=== PATIENT | female | born 1985 | race American Indian/Alaskan Native ===

== ENCOUNTER 2017-12-07 20:04 | Inpatient (IN) | payer MEDICAID ==
[2017-12-07] MEDS ORDERED: VISTARIL PO ONE (21:56)
[2017-12-07] MEDS ORDERED: XYLOCAINE 2% INFILTRATI ONE (22:17)
[2017-12-07] MEDS ORDERED: ePHEDrine SULFATE IV PRN (22:17)
[2017-12-07] MEDS ORDERED: BRETHINE IVP PRN (22:17)
[2017-12-07] MEDS ORDERED: BRETHINE SUB-Q PRN (22:17)
[2017-12-07] MEDS ORDERED: SUBLIMAZE IV PRN (22:17)
[2017-12-07] MEDS ORDERED: MINERAL OIL PO PRN (22:17)
--- NOTE | 2017-12-07 22:27 | History and Physical Report ---
History of Present Illness Date of examination: 12/07/17 Date of admission: 12/07/17 Chief complaint: contractions irregular History of present illness: 32 y/o presents to labor and delivery in early labor. Has had care at [facility] which was unremarkable. Was seen in the office today and her cervical exam was 4-5/80/0. with good movement. She declined admission for advanced dilation at that time as she had to arrange care for her daughter. She presents tonight with increasing painful contractions. Past History Past Medical History: no pertinent history Past Surgical History: other (Ear Surgery) [employer] History: chlamydia - Obstetrical History Expected Date of Delivery: 12/18/17 Actual Gestation: 38 Week(s) 4 Day(s) : 3 Para: 2 Hx # Term Pregnancies: 2 Number of Living Children: 2 Medications and Allergies Allergies Allergy/AdvReac Type Severity Reaction Status Date / Time No Known Allergies Allergy Unverified 12/07/17 20:29 Home Medications Medication Instructions Recorded Confirmed Last Taken Type No Known Home Medications [No 12/08/17 12/08/17 Unknown History Reported Home Medications] Review of Systems All systems: negative - Vital Signs Vital signs: Vital Signs Pulse Pulse Ox 79 99 12/07/17 20:25 12/07/17 20:25 Temp Pulse Resp BP Pulse Ox 92 H 111/65 99 12/07/17 21:29 12/07/17 20:27 12/07/17 21:29 - Physical Exam Vulva: both: normal - Obstetrical FHR: category 1 Uterine Contraction Monitor Mode: External Cervical Dilatation: 4.5 (per nurse exam) Cervical Effacement Percentage: 80 station: 0 Uterine Contraction Pattern: Irregular Uterine Contraction Intensity: Moderate Results All other labs normal. Assessment and Plan A: IUP @ 38.3 weeks with advanced dilation P; Plan augmentation
[2017-12-07] MEDS ORDERED: AMBIEN PO PRN (22:29)
[2017-12-07] MEDS ORDERED: LACTATED RINGERS 1,000 ML IV SCH (23:00)
[2017-12-07] MEDS ORDERED: PITOCin/NS 20 UNIT/1000ML DRIP 20 UNITS/1,000 ML BAG IV SCH (23:00)
[2017-12-07] MEDS ORDERED: PITOCin/NS 30 UNIT/500ML 30 UNITS/500 ML BAG IV SCH (23:00)
--- NOTE | 2017-12-08 07:21 | Event Note ---
Date: 12/08/17 S: contractions still hurting O: VE , Cat I, UC's irregular A: IUP @ 38 wks P; Augment EXpect
[2017-12-08 08:21] LABS: Hematocrit 38.3 % (30.3-42.9); Hemoglobin 13.1 gm/dl (10.1-14.3); Mean Corpuscular HGB Conc 34 % (30-34); Mean Corpuscular Hemoglobin 33 pg (28-32); Mean Corpuscular Volume 96 fl (79-97); Platelet Count 140 K/mm3 (140-440); Red Blood Count 4.01 M/mm3 (3.65-5.03); Red Cell Distribution Width 14.2 % (13.2-15.2)
--- NOTE | 2017-12-08 09:23 | Anesthesia Consultation ---
Anesthesia Consult and Med Hx Date of service: 12/08/17 - Airway Anesthetic Teeth Evaluation: Good, Partials ROM Head & Neck: Adequate Mental/Hyoid Distance: Adequate Mallampati Class: Class II - Pulmonary Exam CTA: Yes - Cardiac Exam Cardiac Exam: RRR - Pre-Operative Health Status ASA Pre-Surgery Classification: ASA2 Proposed Anesthetic Plan: Epidural - Pre-Anesthesia Comment Pre-Anesthesia Comments: laboring patient pitocin induction - Pulmonary Hx Asthma: No COPD: No Hx Pneumonia: No - Cardiovascular System Hx Hypertension: No - Central Nervous System Hx Psychiatric Problems: No - Endocrine Hx Renal Disease: Yes (kidney infection during 1st ) Hx End Stage Renal Disease: No Hx Hypothyroidism: No Hx Hyperthyroidism: No - Hematic Hx Anemia: Yes Hx Sickle Cell Disease: No - Other Systems Hx Alcohol Use: No
--- NOTE | 2017-12-08 09:24 | Anesthesia Day of Surgery ---
Anesthesia Day of Surgery - Day of Surgery Patient H&P Reviewed: Yes Patient is NPO: Yes Beta Blockers: No Cardiac Clearance: No
[2017-12-08 09:26] LABS: Anisocytosis 1+; Band Neutrophils # (Manual) 0.2 K/mm3; Basophils % (Manual) 0 % (0.0-1.8); Platelet Estimate Cons; Total Cells Counted 100
--- NOTE | 2017-12-08 09:26 | Progress Note ---
Assessment and Plan A: IUP @ 384/7 Active Labor Category I Tracing GBS Negative P: Admit to L&D per Routine Orders Continue Pitocin Augmentation AROM Subjective - Subjective Date of service: 12/08/17 Patient reports: other (Resting well under epidural) Objective - Vital Signs Vital Signs: Vital Signs - 12hr 12/07/17 12/07/17 12/08/17 21:29 23:31 05:30 Temperature 97.8 F Pulse Rate 92 H 101 H Respiratory 16 Rate Blood Pressure 110/68 O2 Sat by Pulse 99 Oximetry 12/08/17 12/08/17 12/08/17 07:20 08:54 08:56 Temperature Pulse Rate 106 H 93 H 100 H Respiratory Rate Blood Pressure 116/68 112/52 O2 Sat by Pulse 67 L 77 L Oximetry 12/08/17 12/08/17 12/08/17 09:00 09:01 09:02 Temperature Pulse Rate 98 H 99 H 90 Respiratory Rate Blood Pressure 102/51 101/59 O2 Sat by Pulse 98 Oximetry 12/08/17 12/08/17 12/08/17 09:05 09:06 09:10 Temperature Pulse Rate 84 89 96 H Respiratory Rate Blood Pressure 104/55 107/63 O2 Sat by Pulse 79 L 87 Oximetry 12/08/17 12/08/17 12/08/17 09:11 09:15 09:16 Temperature Pulse Rate 90 93 H 86 Respiratory Rate Blood Pressure 103/58 O2 Sat by Pulse 100 100 Oximetry 12/08/17 09:21 Temperature Pulse Rate 89 Respiratory Rate Blood Pressure O2 Sat by Pulse 100 Oximetry - Exam Breasts: normal Cardiovascular: Regular rate Lungs: Clear to auscultation, Normal air movement Abdomen: Present: normal appearance, soft, normal bowel sounds Uterus: Present: normal, firm, fundal height below umbilicus FHR: category 1 Uterine Contraction Monitor Mode: External Cervical Dilatation: 6 (moderate amount of clear fluid upon AROM at 0915) Cervical Effacement Percentage: 60 station: -2 Uterine Contraction Pattern: Regular Uterine Tone Measurement Phase: Resting Uterine Contraction Intensity: Moderate Extremities: normal - Labs Labs: Abnormal Labs 12/08/17 Unknown MCH 33 H Laboratory Results - last 24 hr 12/08/17 12/08/17 07:35 Unknown WBC 8.7 RBC 4.01 Hgb 13.1 Hct 38.3 MCV 96 MCH 33 H MCHC 34 RDW 14.2 Plt Count 140 Blood Type O POSITIVE Antibody Screen Negative
[2017-12-08] MEDS ORDERED: NARCAN 2 MG/2 ML IV PRN (09:30)
[2017-12-08] MEDS ORDERED: ePHEDrine SULFATE IV PRN (09:30)
[2017-12-08] MEDS ORDERED: fentaNYL-BUPIV 2 MCG/ML-0.125% 200 MCG/100 ML BAG EPIDURAL SCH (10:00)
[2017-12-08] MEDS ORDERED: MILK OF MAGNESIA PO PRN (12:30)
[2017-12-08] MEDS ORDERED: NORCO 5/325 PO PRN (12:30)
[2017-12-08] MEDS ORDERED: BENADRYL PO PRN (12:30)
[2017-12-08] MEDS ORDERED: TYLENOL PO PRN (12:30)
--- NOTE | 2017-12-08 12:36 | Procedure Note ---
OB Delivery Note - Delivery Date of Delivery: 12/08/17 (1218) Surgeon: JACOB MARTINEZ Estimated blood loss: 200cc - Vaginal Delivery presentation: vertex Delivery position: OA Intrapartum events: none Delivery induction: none Delivery augmentation: rupture of membranes, pitocin Delivery monitor: external FHT, external uterine Route of delivery: Delivery placenta: spontaneous Delivery cord: 3 umbilical vessels Episiotomy: none Delivery laceration: none Anesthesia: epidural Delivery comments: of a live 7'11 male over a intact perineum under epidural anesthesia with Apgars of 8 and 9 at 1218 on 12/08/2017. directly to maternal abd/chest, skin to skin contact. Spontaneous delivery of placenta complete and intact with Witt side presenting at 1220. Fundus is firm and midline located 4 below the U. Lochia is scant. Delayed cord clamping and cutting; Cord cut by the father of the baby. Cord blood collected; placenta discarded. - A at 1 minute: 8 at 5 minutes: 9 Gender: Male (7'11)
[2017-12-08] MEDS ORDERED: SODIUM CHLORIDE FLUSH SYRINGE 10 ML IV NR (13:00)
[2017-12-08] MEDS: MOTRIN PO SCH (15:55)
[2017-12-09 00:34] LABS: Hematocrit 33.9 % (30.3-42.9); Hemoglobin 11.1 gm/dl (10.1-14.3)
[2017-12-09] MEDS: MOTRIN PO SCH ×3 (06:57→21:52)
--- NOTE | 2017-12-09 09:26 | Progress Note ---
Assessment and Plan A: PPD#1 s/p Breast/Bottle feeding Stable P: Routine PP care Discharge home today F/U [facility] 6 weeks Depo Provera prior to discharge Subjective - Subjective Date of service: 12/09/17 Principal diagnosis: Interval history: See H&P and delivery note Patient reports: appetite normal, voiding normally, pain well controlled, flatus , ambulating normally : doing well, other (breast/bottle) Objective - Vital Signs Latest vital signs: Vital Signs Temp Pulse Resp BP BP BP Pulse Ox 12/09/17 04:15 97.2 F L 20 104/58 99 12/09/17 00:40 98.1 F 20 107/54 98 12/08/17 20:30 98.9 F 104 H 18 99/53 97 12/08/17 16:08 98.7 F 101 H 20 105/65 100 12/08/17 14:40 98.5 F 100 H 12 110/59 99 12/08/17 14:06 93 H 104/62 12/08/17 14:05 93 H 104/62 12/08/17 13:55 91 H 100/58 100/58 12/08/17 13:06 102 H 82/53 12/08/17 12:51 96 H 96/51 12/08/17 12:50 96 H 96/51 12/08/17 12:48 113 H 179/129 12/08/17 12:32 103 H 107/51 12/08/17 12:30 103 H 107/51 12/08/17 12:16 101 H 103/58 12/08/17 12:14 96 H 100 12/08/17 12:09 94 H 100 12/08/17 12:07 51 L 63 L 12/08/17 12:04 83 100 12/08/17 12:01 79 104/57 12/08/17 11:59 85 100 12/08/17 11:57 97.3 F L 80 14 104/57 100 12/08/17 11:54 82 92/53 99 12/08/17 11:49 87 90/53 100 12/08/17 11:48 85 82/45 80 L 12/08/17 11:44 93 H 99 12/08/17 11:39 89 100 12/08/17 11:34 94 H 100 12/08/17 11:32 94 H 117/55 12/08/17 11:31 90 76 L 12/08/17 11:29 91 H 100 12/08/17 11:25 88 77 L 12/08/17 11:24 95 H 86 12/08/17 11:19 98 H 100 12/08/17 11:16 96 H 108/63 12/08/17 11:14 96 H 100 12/08/17 11:12 95 H 80 L 12/08/17 11:09 89 100 12/08/17 11:04 94 H 100 12/08/17 11:02 96 H 117/66 12/08/17 10:59 97 H 100 12/08/17 10:54 91 H 100 12/08/17 10:49 100 H 100 12/08/17 10:45 91 H 112/65 12/08/17 10:31 105 H 103/59 12/08/17 10:17 100 H 99/58 12/08/17 10:01 99 H 114/55 12/08/17 09:53 79 73 L 12/08/17 09:51 99 H 94 12/08/17 09:46 105 H 100 12/08/17 09:44 92 H 80 L 12/08/17 09:41 91 H 96 12/08/17 09:36 93 H 100 12/08/17 09:32 109 H 133/83 12/08/17 09:31 97 H 100 Intake and Output 12/08/17 12/09/17 12/09/17 23:59 07:59 15:59 Intake Total 120 120 Output Total 1450 Balance -1330 120 Intake: Oral 120 120 Output: Urine 1450 Void 1450 Other: Total, Intake Amount 120 120 Total, Output Amount 550 - Exam Breasts: Present: normal Cardiovascular: Present: Regular rate, Normal S1, Normal S2 Lungs: Present: Clear to auscultation, Normal air movement Abdomen: Present: normal appearance, soft, normal bowel sounds. Absent: distention Vulva: both: normal, laceration/episiotomy (well approximated) Uterus: Present: firm, fundal height at umbilicus Extremities: Present: normal Deep Tendon Reflex Grade: Normal +2
--- NOTE | 2017-12-09 09:28 | Discharge Summary ---
Providers - Providers Date of Admission: 12/07/17 22:29 Date of discharge: 12/09/17 Attending physician: JALYN BAILON MD Primary care physician: JALYN BAILON MD Hospitalization Reason for admission: active labor, IUP at term Delivery: Procedure details: See delivery note Episiotomy: none Laceration: vaginal side wall Other procedures: none complications: none Discharge diagnosis: IUP at term delivered baby: male Condition at discharge: Good Disposition: DC-01 TO HOME OR SELFCARE Plan - Provider Discharge Summary Activity: routine, no sex for 6 weeks, no heavy lifting 4 weeks, no strenuous exercise Diet: routine Instructions: routine Additional instructions: [] Smoking cessation referral if applicable(refer to patient education folder for contact #) [] Refer to [facility]'s [facility] Booklet Call your doctor immediately for: * Fever > 100.5 * Heavy vaginal bleeding ( >1 pad per hour) * Severe persistent headache * Shortness of breath * Reddened, hot, painful area to leg or breast * Drainage or odor from incision. * Keep incision clean and dry at all times and follow doctor's instructions regarding bathing/showering - Follow up plan Follow up: BLAINE WAY CNM [Advanced Practice Nurse] - 6 Weeks
[2017-12-09] MEDS ORDERED: DEPO-PROVERA (CONTRACEPTION) IM NR (09:30)
[2017-12-10] MEDS: MOTRIN PO SCH (06:35)
[2017-12-10 10:01] VITALS: BP 86/44
[2017-12-10] MEDS ORDERED: DEPO-PROVERA (CONTRACEPTION) IM NR (14:00)
== END 2017-12-10 13:45 | disposition home or self-care (01) | DRG 775 ==
LOC: TRG 20:04 → LD 22:29 → OB 12-08 15:05
PROVIDERS: ADMIT Obstetrics & Gynecology; ATTEND Obstetrics & Gynecology
PROC: 10E0XZZ Delivery of Products of Conception, External Approach (ICD-10-PCS; principal; 2017-12-08)
PROC: 10907ZC Drainage of Amniotic Fluid, Therapeutic from Products of Conception, Via Natural or Artificial Opening (ICD-10-PCS; 2017-12-08)
PROC: 3E0R3BZ Introduction of Anesthetic Agent into Spinal Canal, Percutaneous Approach (ICD-10-PCS; 2017-12-08)
PROC: 00HU33Z Insertion of Infusion Device into Spinal Canal, Percutaneous Approach (ICD-10-PCS; 2017-12-08)
DX: O80 Encounter for full-term uncomplicated delivery (principal); Z3A.38 38 weeks gestation of pregnancy; Z37.0 Single live birth
CPT/HCPCS: 36415; 85007; 85014; 85018; 85025; 86850; 86900; 86901; 99211; G0463; J1050; J2590; J7120